=== PATIENT | female | born 1940 | race Asian ===

== ENCOUNTER 2018-05-09 13:01 | Emergency (ER) | payer MEDICARE, BC ==
[~2018-05-09] VITALS: Ht 157.5 cm; Wt 49.0 kg
--- NOTE | 2018-05-09 13:01 | NUR ---
ED Nurse Note: pt brought in by DERRELL from a restaurant c/o syncope, per EMS report, pt went to restroom and passed out and her friends caught her, no injury, no head trauma. Pt states she does have some nausea and dizziness, and had syncopal episode about four five months ago. no medical hx. Pt AA&ox4, gcs=15, skin warm and dry, resp even and unlabored, -n/v/d, NSR on lunchroom monitor, VSS. will cont monitor.
--- NOTE | 2018-05-09 13:05 | NUR ---
ED Nurse Note: pt provided with warm blanket for comfort.
[2018-05-09 13:10] VITALS: BP 111/73
[2018-05-09] MEDS ORDERED: Sodium Chloride 500ML 500 ML IV ONE (13:30)
[2018-05-09 13:47] LABS: BASOPHILS % (AUTO) 0.8 % (0.0-2.0); EOSINOPHILS % (AUTO) 2.5 % (0.0-3.0); HEMATOCRIT 35.2 % (37.0-47.0); MEAN CORPUSCULAR VOLUME 98 FL (80-99); MONOCYTES % (AUTO) 7.2 % (1.0-10.0); NEUTROPHILS % (AUTO) 52.6 % (45.0-75.0); PLATELET COUNT 176 K/UL (150-450); RED CELL DISTRIBUTION WIDTH 11.3 % (11.6-14.8); WHITE BLOOD COUNT 4.9 K/UL (4.8-10.8)
[2018-05-09 13:51] LABS: ANION GAP 9 mmol/L (5-15); BLOOD UREA NITROGEN 17 mg/dL (7-18); CALCIUM 8.7 MG/DL (8.5-10.1); CARBON DIOXIDE 25 MMOL/L (21-32); CHLORIDE 106 MMOL/L (98-107); CREATININE 1.1 MG/DL (0.55-1.30); POTASSIUM 3.9 MMOL/L (3.5-5.1); SODIUM 140 MMOL/L (136-145)
[2018-05-09 14:04] LABS: ALANINE AMINOTRANSFERASE 25 U/L (12-78); ALBUMIN 3.2 G/DL (3.4-5.0); ALKALINE PHOSPHATASE 84 U/L (46-116); ASPARTATE AMINO TRANSFERASE 39 U/L (15-37); BILIRUBIN,TOTAL 0.5 MG/DL (0.2-1.0); CKMB 0.9 NG/ML (0.0-3.6); CREATINE KINASE 155 U/L (26-308)
[2018-05-09 14:47] VITALS: BP 128/67
--- NOTE | 2018-05-09 14:47 | NUR ---
ED Nurse Note: pt discharge instruction provided w/ prescription, pt advised to follow up with pcp or return to ed if s/s worsen or new s/s develop, pt iv d/c and dressing applied, iv intact, vss, ambulatory w/ steady gait, pt caregiver verbalized understanding and agrees with plan, education done via discussion and handout, pt ambulatory, vss, resp even and unlabored.
--- NOTE | 2018-05-09 15:43 | Emergency Room Report ---
History of Present Illness General Chief Complaint: Syncope Source: Patient Present Illness HPI Patient presents emergency department today with one episode of syncope. Patient states that she was meeting her friends for lunch. After lunch she had some abdominal discomfort associate with cramping passage of flatus and then sensation of dizziness and a presyncopal event. Patient states that this has occurred 2 in the past and it occurred just as recently as a couple months ago with similar symptoms. She denies any chest pain shortness breath. She denies any palpitations. Patient states that she does not want to be admitted to the hospital. She denies any cough runny nose or sore throat. No other complaints are noted. Symptoms noted to be moderate. Patient is agreeable to having the laboratory testing and that if was normal she wanted to be discharged.No other modifying factors. No other associated signs and symptoms. No other complaints were noted. Allergies: Coded Allergies: No Known Allergies (Unverified , 05/09/18) Patient History Past Medical History: none Past Surgical History: none Pertinent Family History: none Social History: Denies: smoking, alcohol use, drug use : 4 Para: 2 Reviewed Nursing Documentation: PMH: Agreed; PSxH: Agreed Nursing Documentation-PMH Past Medical History: No Stated History Review of Systems All Other Systems: negative except mentioned in HPI Physical Exam Vital Signs Date Time Temp Pulse Resp B/P (MAP) Pulse Ox O2 Delivery O2 Flow Rate FiO2 05/09/18 12:56 98.4 82 16 123/74 100 Room Air Sp02 EP Interpretation: reviewed, normal General Appearance: normal inspection, well appearing, no apparent distress, alert Head: atraumatic Eyes: bilateral eye normal inspection ENT: normal ENT inspection, hearing grossly normal, normal voice Neck: normal inspection, full range of motion, supple, no bony tend Respiratory: normal inspection, lungs clear, normal breath sounds, no respiratory distress, no retraction, no wheezing Cardiovascular #1: regular rate, rhythm, no edema Gastrointestinal: normal inspection, normal bowel sounds, non tender, soft, no guarding, no hernia Genitourinary: no CVA tenderness Musculoskeletal: normal inspection, back normal, normal range of motion Neurologic: normal inspection, alert, responsive, speech normal Psychiatric: normal inspection, judgement/insight normal, mood/affect normal Skin: normal inspection, normal color, no rash Medical Decision Making Diagnostic Impression: Primary Impression: Syncope ER Course Patient presents to the emergency department today complaining of syncope. Differential diagnoses include acute CVA, acute coronary syndrome, acute arrhythmia, vasovagal episode, seizure just to name a few. Given the severity of the patient's presentation I felt this is a highly complex patient. This patient required extensive workup. CBC, chemistry, cardiac enzymes, EKG, liver profile were all obtained. 12-lead EKG performed for syncope, PQRS documentation: EKG was performed in the ED. Please refer to below for interpretation. Patient's laboratory workup was negative. Given the patient had negative workup here I did offer to admit the patient for monitoring but she declined. I felt was reasonable given patient a negative workup with no prior medical problems especially in light of fact the patient has a syncopal events before.Patient is advised to follow up with primary doctor in 2-3 days and return the emergency room for any worsening symptoms and as needed. Labs Test 05/09/18 13:18 White Blood Count 4.9 K/UL (4.8-10.8) Red Blood Count 3.60 M/UL (4.20-5.40) Hemoglobin 12.0 G/DL (12.0-16.0) Hematocrit 35.2 % (37.0-47.0) Mean Corpuscular Volume 98 FL (80-99) Mean Corpuscular Hemoglobin 33.3 PG (27.0-31.0) Mean Corpuscular Hemoglobin Concent 34.1 G/DL (32.0-36.0) Red Cell Distribution Width 11.3 % (11.6-14.8) Platelet Count 176 K/UL (150-450) Mean Platelet Volume 6.8 FL (6.5-10.1) Neutrophils (%) (Auto) 52.6 % (45.0-75.0) Lymphocytes (%) (Auto) 37.0 % (20.0-45.0) Monocytes (%) (Auto) 7.2 % (1.0-10.0) Eosinophils (%) (Auto) 2.5 % (0.0-3.0) Basophils (%) (Auto) 0.8 % (0.0-2.0) Sodium Level 140 MMOL/L (136-145) Potassium Level 3.9 MMOL/L (3.5-5.1) Chloride Level 106 MMOL/L (98-107) Carbon Dioxide Level 25 MMOL/L (21-32) Anion Gap 9 mmol/L (5-15) Blood Urea Nitrogen 17 mg/dL (7-18) Creatinine 1.1 MG/DL (0.55-1.30) Estimat Glomerular Filtration Rate mL/min (>60) Glucose Level 212 MG/DL (74-106) Calcium Level 8.7 MG/DL (8.5-10.1) Total Bilirubin 0.5 MG/DL (0.2-1.0) Aspartate Amino Transf (AST/SGOT) 39 U/L (15-37) Alanine Aminotransferase (ALT/SGPT) 25 U/L (12-78) Alkaline Phosphatase 84 U/L (46-116) Total Creatine Kinase 155 U/L (26-308) Creatine Kinase MB 0.9 NG/ML (0.0-3.6) Creatine Kinase MB Relative Index 0.5 Troponin I 0.009 ng/mL (0.000-0.056) Total Protein 6.5 G/DL (6.4-8.2) Albumin 3.2 G/DL (3.4-5.0) Globulin 3.3 g/dL Albumin/Globulin Ratio 1.0 (1.0-2.7) EKG Diagnostic Results Rate: normal Rhythm: NSR ST Segments: no acute changes Rhythm Strip Diag. Results EP Interpretation: yes Rate: 68 Rhythm: NSR, no PVC's, no ectopy Last Vital Signs Date Time Temp Pulse Resp B/P (MAP) Pulse Ox O2 Delivery O2 Flow Rate FiO2 05/09/18 13:10 97.8 82 18 111/73 100 Room Air Status: improved Disposition: HOME, SELF-CARE Condition: Stable Referrals: NON PHYSICIAN (PCP) Patient Instructions: Syncope Edward Farrar MD May 09, 2018 15:43
--- NOTE | 2018-05-10 17:36 | Cardiology Report ---
APPROVED REPORT EKG Measurement Heart [id number] CT [id number] Normal sinus rhythm Normal ECG
== END 2018-05-09 14:42 | disposition home or self-care (01) ==
LOC: EDBD 13:01 → EMR 13:50
DX: R55 Syncope and collapse (principal)
CPT/HCPCS: 36415; 80053; 82550; 82553; 84484; 85025; 93005; 99284